=== PATIENT | female | born 1990 | race Caucasian/White ===

== ENCOUNTER → 2023-04-30 13:12 | Outpatient (BNVA) | payer MEDICAID, SELFPAY | PROVIDERS: PCP Internal Medicine; Referring Provider Internal Medicine; Visit Provider Surgery | DX: K80.50 Calculus of bile duct without cholangitis or cholecystitis without obstruction (principal); M67.431 Ganglion, right wrist | CPT/HCPCS: 99202 ==

== ENCOUNTER 2023-05-22 06:14 | Day surgery (SDC) | payer MEDICAID, SELFPAY ==
--- NOTE | 2023-05-21 09:17 | HO.ANESPROP2 ---
Documented by User: Hannah Talavera NP 05/21/23 09:18 HPI - Anesthesia Eval Consult details Narrative: 33yo F for Cholecystectomy Laparoscopic PMFSH Active Problems Active Problems: All Active Problems (Updated 04/30/23 @ 13:39 by Omega Benson MD) Biliary colic (Acute) Ganglion cyst of dorsum of right wrist (Acute) Past Medical History Medical History (Updated 05/19/23 @ 13:57 by Darcy Palomino RN) Allergic rhinitis Anxiety Asthma Fibromyalgia IBS (irritable bowel syndrome) Migraine PCOS (polycystic ovarian syndrome) Family History Family History (Updated 04/30/23 @ 13:37 by LUIS Meza) Father Prostate cancer, Onset Age: 57 Maternal Grandmother Leukemia Other Breast cancer Ovarian cancer Surgical History Surgical History (Updated 05/22/23 @ 06:30 by Crystal Gao) H/O section (~2018) H/O dilation and curettage History of removal of cyst Social History Social History (Updated 04/30/23 @ 13:36 by LUIS Meza) Alcohol intake: never Patient Tobacco Use Status: Never used Tobacco Use of substances other than those prescribed or required for medical reasons: No Are you DNR?: No Advance Directives: No Advance Directives Information Provided: Yes Meds Allergies Allergy/AdvReac Type Severity Reaction Status Date / Time diphenhydramine Allergy Severe MUSCLE Verified 05/22/23 06:32 [From Benadryl] SPASMS meloxicam Allergy Severe Anaphylaxis Verified 05/22/23 06:32 NSAIDS (Non-Steroidal Allergy Severe SWELLING/RA Verified 05/22/23 06:32 Anti-Inflamma SH aspirin Allergy Unknown Unknown Verified 05/22/23 06:32 Home Medications Medication Instructions Recorded Confirmed Last Taken Type ascorbic acid (vitamin C) 500 mg 1,000 mg PO DAILY 04/30/23 05/22/23 Unknown History chewable tablet cetirizine 10 mg tablet (All Day 10 mg PO DAILY PRN Allergic 04/30/23 05/22/23 Unknown History Allergy (cetirizine)) Symptoms duloxetine 20 mg capsule,delayed 20 mg PO DAILY 04/30/23 05/22/23 05/22/23 History release gabapentin 300 mg capsule 300 mg PO DAILY PRN Pain 04/30/23 05/22/23 Unknown History lorazepam 0.5 mg tablet 0.5 mg PO BEDTIME PRN Anxiety 04/30/23 05/22/23 Unknown History multivitamin 1 tab PO DAILY 04/30/23 05/22/23 Unknown History albuterol sulfate 90 mcg/actuation 2 puff inhalation Q4H PRN 05/19/23 05/22/23 Unknown History aerosol inhaler (Ventolin HFA) Shortness Of Breath Or Wheezing Exam Exam Date and Time: May 21, [id number] Assessment and Plan Assessment Anesthesia Assessment: Chart Reviewed Documented by User: Jonathan Blake MD 05/22/23 07:21 [facility] Past Medical History Medical History (Updated 05/19/23 @ 13:57 by Darcy Palomino RN) Allergic rhinitis Anxiety Asthma Fibromyalgia IBS (irritable bowel syndrome) Migraine PCOS (polycystic ovarian syndrome) Family History Family History (Updated 04/30/23 @ 13:37 by LUIS Meza) Father Prostate cancer, Onset Age: 57 Maternal Grandmother Leukemia Other Breast cancer Ovarian cancer Family history of problems with anesthesia: No Surgical History Surgical History (Updated 05/22/23 @ 06:30 by Crystal Gao) H/O section (~2017) H/O dilation and curettage History of removal of cyst History of Problems with Anesthesia: No Social History Social History (Updated 04/30/23 @ 13:36 by LUIS Meza) Alcohol intake: never Patient Tobacco Use Status: Never used Tobacco Use of substances other than those prescribed or required for medical reasons: No Are you DNR?: No Advance Directives: No Advance Directives Information Provided: Yes Meds Allergies Allergy/AdvReac Type Severity Reaction Status Date / Time diphenhydramine Allergy Severe MUSCLE Verified 05/22/23 06:32 [From Benadryl] SPASMS meloxicam Allergy Severe Anaphylaxis Verified 05/22/23 06:32 NSAIDS (Non-Steroidal Allergy Severe SWELLING/RA Verified 05/22/23 06:32 Anti-Inflamma SH aspirin Allergy Unknown Unknown Verified 05/22/23 06:32 Home Medications Medication Instructions Recorded Confirmed Last Taken Type ascorbic acid (vitamin C) 500 mg 1,000 mg PO DAILY 04/30/23 05/22/23 Unknown History chewable tablet cetirizine 10 mg tablet (All Day 10 mg PO DAILY PRN Allergic 04/30/23 05/22/23 Unknown History Allergy (cetirizine)) Symptoms duloxetine 20 mg capsule,delayed 20 mg PO DAILY 04/30/23 05/22/23 05/22/23 History release gabapentin 300 mg capsule 300 mg PO DAILY PRN Pain 04/30/23 05/22/23 Unknown History lorazepam 0.5 mg tablet 0.5 mg PO BEDTIME PRN Anxiety 04/30/23 05/22/23 Unknown History multivitamin 1 tab PO DAILY 04/30/23 05/22/23 Unknown History albuterol sulfate 90 mcg/actuation 2 puff inhalation Q4H PRN 05/19/23 05/22/23 Unknown History aerosol inhaler (Ventolin HFA) Shortness Of Breath Or Wheezing Exam Airway Mallampati Class: II TM Dist: >3cm Neck ROM: Full Heart: rrr Lungs: cta Assessment and Plan Assessment Anesthesia Assessment: Anesthesia Plan Discussed Final Anesthetic Review Family History of Problems with Anesthesia: No History of Problems with Anesthesia: No NPO: Yes ASA Class: II Final Preanesthetic Review: No Changes in Pt Med Stat, Meds/Allgs Chart Reviewed, Consent Obtained/Reviewed and Anes Risks/Benef Reviewed Patient Risk: Low Procedure Risk: Intermediate Anesthetic Plan Anesthetic Plan: GA and Agree w/ Assess. and Plan Disposition: Standard PACU
--- NOTE | 2023-05-21 10:51 | MHC.SHP ---
Pre-Procedural Eval Section A Date of Service: 05/21/23 The patient is an INPATIENT: No Changes since office visit: No Cold of Flu in the past 2 weeks, No New Medical Problems, No Changes in Medication and No Patient answered all questions The History & Physical has been completed within 30 days and I have reviewed it.: Yes Section B Chief Complaint: Calculus of bile duct without cholangitis or omar Allergies: Allergies Allergy/AdvReac Type Severity Reaction Status Date / Time aspirin Allergy Severe Unknown Verified 04/30/23 13:29 diphenhydramine Allergy Severe Unknown Verified 04/30/23 13:29 [From Benadryl] meloxicam Allergy Severe Anaphylaxis Verified 04/30/23 13:29 NSAIDS (Non-Steroidal Allergy Severe Unknown Verified 04/30/23 13:29 Anti-Inflamma Plan I have reviewed the history and physical and performed a pertinent physical examination on my patient. No changes have occurred unless specified. Time Spent With Patient Time: Total time managing care of this patient today ____ minutes.
[2023-05-22] VITALS (12 sets, daily range): BP systolic 109–128; BP diastolic 67–83; PULSE 79–97; RESP 16–20; TEMP 36.3–37.1; O2SAT 96–100; BMI 30.6
[2023-05-22] MEDS: Lactated Ringers 1,000 ML 100 ML IVCONT (06:46)
[2023-05-22 07:01] LABS: UPreg QC Valid YES; Urine Pregnancy NEGATIVE (NEGATIVE)
--- NOTE | 2023-05-22 08:10 | W.PM.OPN ---
Operative Note Operative Note Date of Service: 05/22/23 Narrative: Preoperative diagnosis: [] Recurrent biliary colic Postop diagnosis: [] Same Procedure [] laparoscopic cholecystectomy Surgeon: [] Marcelino Mechanic Insulator: [] ANGELICA Foster Type of Anesthesia: [] General Indication for surgery: [] Gallbladder with multiple small gallstones. Soft omental and gastric adhesions to the gallbladder. Intrahepatic gallbladder. Moderately corpulent abdomen. Findings: [] Patient brought to the operating room, placed on the operative table in supine position, and after an adequate level of general anesthesia was induced, the patient's abdomen was prepped and draped in usual sterile fashion. Using a supraumbilical curvilinear incision, Coyne technique was used to insufflate the abdominal cavity to 15 mm of CO2. Upper midline and right subcostal ports were placed under direct laparoscopic view, and the patient placed in reverse Trendelenburg position, tilted to the left. Gallbladder was grasped using laparoscopic graspers, and retracted superiorly and laterally. Soft omental and gastric adhesions were swept off the hilum. Common bile duct was identified and preserved throughout the procedure. Cystic artery and cystic duct were each identified, circumferentially skeletonized, each traced directly into the gallbladder, and critical view obtained. Each was clipped proximally x2, distally x1, and transected. Gallbladder which was very intrahepatic was then cauterized from the gallbladder fossa using Bovie. A small posterior descending arterial branch was in the gallbladder fossa which was clipped. Gallbladder was placed in an Endo-Catch bag, a retrieved through the umbilical port. The abdominal cavity was copiously irrigated, and secured hemostasis. All ports were removed under direct laparoscopic view. Wounds were closed in the following manner; umbilical wound is fascia reapproximated using interrupted 0 Vicryl sutures. Skin wounds were closed using subcuticular 4-0 Vicryl sutures followed by Steri-Strips and sterile dressings. Wounds were infiltrated 0.5% Marcaine at completion. Sponge, needle, and instrument counts were reported to be correct. Patient tolerated the procedure well and emerged anesthesia stable condition. EBL minimal
[2023-05-22] MEDS: oxyCODONE HCl Immed Release 5 MG TABLET PO (08:52)
[2023-05-22] MEDS: fentaNYL citrate/PF 100 MCG/2 ML VIAL 25 MCG IVPUSH ×2 (08:52→08:57)
== END 2023-05-22 10:20 | disposition home or self-care (01) ==
PROVIDERS: Nurse Practitioner; PCP Nurse Practitioner Adult Health; Visit Provider Surgery
PROC: 0FT44ZZ Resection of Gallbladder, Percutaneous Endoscopic Approach (ICD-10-PCS; CPT 47562; principal; 2023-05-22 07:30)
DX: K80.10 Calculus of gallbladder with chronic cholecystitis without obstruction (principal); Z88.6 Allergy status to analgesic agent; Z88.8 Allergy status to other drugs, medicaments and biological substances
CPT/HCPCS: 47562; 81025; 88304; J0131; J0690; J1100; J1885; J2250; J2370; J2371; J2405; J2795; J3010

== ENCOUNTER → 2023-05-22 06:14 | Outpatient (BNV) | payer MEDICAID, SELFPAY | PROVIDERS: PCP Nurse Practitioner Adult Health; Visit Provider Surgery | DX: K80.51 Calculus of bile duct without cholangitis or cholecystitis with obstruction (principal) | CPT/HCPCS: 47562 ==

== ENCOUNTER 2023-06-02 09:14 | Outpatient (AMB) | payer MEDICAID, SELFPAY ==
[2023-06-02 09:18] VITALS: BP 116/79; PULSE 97
--- NOTE | 2023-06-02 09:18 | MHC.OFFVIS ---
Intake Vital Signs 06/02/23 09:18 Weight 160 lb BP 116/79 Blood Pressure Location Rt brachial Position Sitting Pulse 97 Intake Visit Reasons: S/P lap omar Intake Note: Patient here s/p lap omar. Reports incision sites healing well. Denies pain, bleeding or oozing. No longer taking rx pain meds. 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 All things considered she is doing well. She is Shirin diabetes and all bowel habits. She is slowly but steadily increasing her activity level. She has minimal incisional discomfort. [facility] Medical History Allergic rhinitis Anxiety Asthma Fibromyalgia IBS (irritable bowel syndrome) Migraine PCOS (polycystic ovarian syndrome) Surgical History H/O section (~2018) H/O dilation and curettage History of laparoscopic cholecystectomy (05/22/23) History of removal of cyst Family History Father Prostate cancer, Onset Age: 57 Maternal Grandmother Leukemia Other Breast cancer Ovarian cancer Social History Alcohol intake: never Patient Tobacco Use Status: Never used Tobacco Physical Exam Vital Signs: Last Vital Signs Pulse 97 06/02/23 09:18 BP 116/79 06/02/23 09:18 Eyes Other: Anicteric GI Other: Abdomen soft. All wounds clean dry and intact with good 1st intention healing Assessment & Plan Assessment & Plan (1) Biliary colic: Code(s): K80.50 - Calculus of bile duct without cholangitis or cholecystitis without obstruction Plan Patient has been given specific local instructions, and will follow-up p.r.n. Coding Level of Care Code Global (15594) Diagnoses Biliary colic K80.50
== END 2023-06-02 09:27 | disposition home or self-care (01) ==
PROVIDERS: PCP Internal Medicine; Visit Provider Surgery
DX: K80.50 Calculus of bile duct without cholangitis or cholecystitis without obstruction (principal)
CPT/HCPCS: 99024

== ENCOUNTER → 2023-06-02 09:14 | Outpatient (BNVA) | payer MEDICAID, SELFPAY | PROVIDERS: PCP Internal Medicine; Visit Provider Surgery ==

== ENCOUNTER 2024-09-24 10:38 | Outpatient (REF) | payer OTHER, SELFPAY ==
[2024-09-24 11:00] LABS: MANUAL DIFF FLAG NO
[2024-09-24 11:41] LABS: Basophils Absolute Auto 0.1 X10*3/uL (0.0-0.2); Basophils Percent Auto 0.7 % (0-2); Eosinophils Absolute Auto 0.2 X10*3/uL (0.0-0.4); Eosinophils Percent Auto 3.3 % (0-4); Hematocrit 36.9 % (37.0-47.0); Hemoglobin 12.1 g/dl (12.0-16.0); Imm Gran Abs Auto 0.01 X10*3/uL (0.00-0.03); Imm Gran Pct Auto 0.1 % (0.0-0.4); Lymphocytes Absolute Auto 2.7 X10*3/uL (1.2-4.9); Lymphocytes Percent Auto 39.6 % (20-40); Mean Corpuscular HGB Conc 32.8 g/dl (31.0-35.0); Mean Corpuscular Hemoglobin 25.9 pg (27.0-33.0); Mean Corpuscular Volume 78.8 fL (80.0-98.0); Mean Platelet Volume 9.9 fL (9.4-12.3); Monocytes Absolute Auto 0.4 X10*3/uL (0.1-1.2); Monocytes Percent Auto 6.1 % (2-11); Neutrophils Absolute Auto 3.4 x10*3/uL (2.0-8.3); Neutrophils Percent Auto 50.2 % (45-73); Platelet Count 357 X10*3/uL (160-400); Red Blood Count 4.68 X10*6/uL (4.20-5.50); Red Cell Distribution Width 14.2 % (11.0-16.0); White Blood Count 6.9 X10*3/uL (4.8-10.8)
[2024-09-24 12:18] LABS: Alanine Aminotransferase 28 U/L (0-31); Albumin Level 4.5 g/dL (3.5-5.0); Alkaline Phosphatase 67 U/L (39-117); Anion Gap 10 (12-20); Aspartate Amino Transferase 24 U/L (5-31); Bilirubin Direct 0.1 mg/dL (0.0-0.5); Bilirubin Total 0.3 mg/dL (0.0-1.0); Blood Urea Nitrogen 12 mg/dL (9-16); Calcium 9.4 mg/dL (8.4-10.2); Carbon Dioxide 27 mmol/L (22-29); Chloride 103 mmol/L (96-108); Cholesterol 271 mg/dL (<200); Estimated Glomerular Filt Rate > 60; Glucose Random 92 mg/dL (60-115); HDL Cholesterol 64 mg/dL (>40); LDL Cholesterol Calculated 171 mg/dL (<100); Potassium 3.9 mmol/L (3.3-5.1); Sodium 136 mmol/L (135-145); Total Protein 7.9 g/dL (6.5-8.0); Triglycerides 180 mg/dL (<150)
[2024-09-24 12:30] LABS: HBS Num1 80.88 mIU/mL (0-7.99); HBc Num1 0.12 S/CO (0.00-0.79); HBsAGNum1 0.37 S/CO (0.00-0.99); Hepatitis B Core Antibody Nonreactive (Nonreactive); Hepatitis B Surface Antigen Negative (Negative); ~HepC Num1 0.09 S/CO (0.00-0.79); ~Hepatitis B Surface Antibody REACTIVE (Nonreactive); ~Hepatitis C Antibody Nonreactive (Nonreactive)
[2024-09-24 12:39] LABS: Reflex LDLD? No
[2024-09-27 10:43] LABS: TS Negative Control Passed; TS Panel A 0; TS Panel B 0; TS Positive Control Passed; TSpotTB Negative (Negative)
== END 2024-09-24 10:39 | disposition home or self-care (01) ==
LOC: HO.LAB 10:38
PROVIDERS: PCP Internal Medicine; Visit Provider Physician Assistant
DX: L20.89 Other atopic dermatitis (principal)
CPT/HCPCS: 36415; 80048; 80061; 80076; 85025; 86481; 86704; 86706; 86803; 87340

== ENCOUNTER 2024-11-15 08:50 | Outpatient (REF) | payer OTHER, SELFPAY ==
[2024-11-15 10:20] LABS: Cholesterol 259 mg/dL (<200); HDL Cholesterol 56 mg/dL (>40); LDL Cholesterol Calculated 179 mg/dL (<100); Triglycerides 120 mg/dL (<150)
[2024-11-15 11:05] LABS: Reflex LDLD? No
== END 2024-11-15 08:51 | disposition home or self-care (01) ==
LOC: HO.LAB 08:50
PROVIDERS: PCP Internal Medicine; Visit Provider Physician Assistant
DX: L20.89 Other atopic dermatitis (principal)
CPT/HCPCS: 36415; 80061

== ENCOUNTER 2025-01-28 08:31 | Outpatient (REF) | payer OTHER, SELFPAY ==
[2025-01-28 09:32] LABS: Cholesterol 267 mg/dL (<200); HDL Cholesterol 62 mg/dL (>40); LDL Cholesterol Calculated 180 mg/dL (<100); Triglycerides 127 mg/dL (<150)
[2025-01-28 09:42] LABS: Reflex LDLD? No
== END 2025-01-28 08:32 | disposition home or self-care (01) ==
LOC: HO.LAB 08:31
PROVIDERS: PCP Internal Medicine; Visit Provider Physician Assistant
DX: L20.89 Other atopic dermatitis (principal); Z13.6 Encounter for screening for cardiovascular disorders
CPT/HCPCS: 36415; 80061

== ENCOUNTER 2025-02-12 17:35 | Emergency (ER) | payer OTHER, SELFPAY ==
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
--- NOTE | ~2025-02-12 | XR_ITS ---
CLINICAL HISTORY: dorsal tenderness after fall 3 view right foot Comparison: None Findings: No fractures or dislocations. No significant loss of joint space, osteophytes, or erosions. No ankle effusion. No radiopaque foreign body. There is a miniscule plantar tendon enthesophyte. IMPRESSION: No acute fracture or dislocation. This document has been electronically signed by: Belkys Garrison DO on 02/12/2025 19:07:14
[2025-02-12 17:50] VITALS: BP 117/86; PULSE 92; RESP 16; TEMP 36.4; O2SAT 99; BMI 28.0
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
[2025-02-12 21:02] VITALS: BP 135/85; PULSE 89; RESP 20; TEMP 36.9; O2SAT 99
[2025-02-12 21:07] VITALS: BP 135/85; PULSE 89; RESP 20; TEMP 36.9; O2SAT 99
== END 2025-02-12 21:08 | disposition home or self-care (01) ==
PROVIDERS: Emergency Provider Emergency Medicine Emergency Medical Services; PCP Internal Medicine
DX: S82.891A Other fracture of right lower leg, initial encounter for closed fracture (principal); M25.571 Pain in right ankle and joints of right foot; R42 Dizziness and giddiness; W19.XXXA Unspecified fall, initial encounter; Y93.9 Activity, unspecified; Y92.9 Unspecified place or not applicable; Y99.8 Other external cause status; Z79.899 Other long term (current) drug therapy
CPT/HCPCS: 73610; 73620; 99283

== ENCOUNTER → 2025-02-12 17:54 | Outpatient (BNV) | payer OTHER, SELFPAY | PROVIDERS: PCP Internal Medicine; Visit Provider Radiology Diagnostic Radiology | DX: S82.61XA Displaced fracture of lateral malleolus of right fibula, initial encounter for closed fracture (principal); M54.89 Other dorsalgia; W19.XXXA Unspecified fall, initial encounter | CPT/HCPCS: 73610; 73620 ==

== ENCOUNTER 2025-03-03 08:49 | Outpatient (AMB) | payer OTHER, SELFPAY ==
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
== END 2025-03-03 09:25 | disposition home or self-care (01) ==
LOC: HO.HOS 08:49
PROVIDERS: PCP Internal Medicine; Visit Provider Physician Assistant
DX: S93.401A Sprain of unspecified ligament of right ankle, initial encounter (principal); S82.891A Other fracture of right lower leg, initial encounter for closed fracture; W01.0XXA Fall on same level from slipping, tripping and stumbling without subsequent striking against object, initial encounter
CPT/HCPCS: 99204

== ENCOUNTER → 2025-03-03 08:49 | Outpatient (BNVA) | payer OTHER, SELFPAY | PROVIDERS: PCP Internal Medicine; Visit Provider Physician Assistant ==

== ENCOUNTER 2025-03-31 09:17 | Outpatient (REF) | payer OTHER, SELFPAY ==
--- NOTE | ~2025-03-31 | XR_ITS ---
CLINICAL HISTORY: M25.579 - Pain in unspecified ankle and joints of unspecified foot 3 view right ankle Comparison: CR - XR FOOT RT 2V - 02/12/25 18:08 EDT CR/NV - XR ANKLE RT MIN 3V - 02/12/25 18:06 EDT Findings: Bony alignment is anatomic. No acute fractures. Tiny radiodensities are seen along the medial aspect of the distal lateral malleolus. These are improved compared to prior study. Mild lateral soft tissue swelling. No definitive acute fracture is seen. Ankle mortise is intact. IMPRESSION: Improved tiny radiodensities adjacent to the medial aspect of the lateral malleolus. No acute fracture identified. This document has been electronically signed by: Da Abraham MD on 04/09/2025 09:05:48
== END 2025-03-31 09:18 | disposition home or self-care (01) ==
LOC: HO.HOSX 09:17
PROVIDERS: Visit Provider Physician Assistant
DX: M25.571 Pain in right ankle and joints of right foot (principal)
CPT/HCPCS: 73610

== ENCOUNTER 2025-03-31 09:21 | Outpatient (AMB) | payer OTHER, SELFPAY ==
--- NOTE | 2025-03-31 09:34 | MHC.OFFVIS ---
Intake Visit Reasons: OV- right ankle injury-DOI 02/12/25 w/xray Intake Note: Tran is a 35 year old female who presents today with her for an evaluation of right ankle fx, DOI 02/12/25. At her last visit she was given a tall walking boot. Patient reports she is doing well and she is working with physical therapy. Allergies diphenhydramine [From Benadryl] Allergy (Severe, Verified 03/31/25 09:47) MUSCLE SPASMS meloxicam Allergy (Severe, Verified 03/31/25 09:47) Anaphylaxis NSAIDS (Non-Steroidal Anti-Inflamma Allergy (Severe, Verified 03/31/25 09:47) SWELLING/RASH aspirin Allergy (Unknown, Verified 03/31/25 09:47) Unknown HPI HPI OV- right ankle injury-DOI 02/12/25 w/xray: Details: Ms. 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 At her last appointment she was transitioned to a tall walking boot. She has been using this as instructed since her last appointment. She reports that she has developed some stiffness in the right ankle. She is working with physical therapy and has attended 2 sessions to date. She reports that the pain has resolved overall. No additional complaints. [facility] Medical History (Updated 03/03/25 @ 09:08 by Trena Frias PA-C) Avulsion fracture of ankle Right ankle sprain Anxiety Fibromyalgia IBS (irritable bowel syndrome) Allergic rhinitis Asthma Migraine PCOS (polycystic ovarian syndrome) Surgical History History of laparoscopic cholecystectomy (05/22/23) H/O dilation and curettage H/O section (~2018) History of removal of cyst Family History Father Prostate cancer, Onset Age: 57 Maternal Grandmother Leukemia Other Breast cancer Ovarian cancer Social History Alcohol intake: never Patient Tobacco Use Status: Never used Tobacco Current occupational status: employed 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 No ecchymosis, erythema, or edema. Patient is able to demonstrate dorsiflexion, plantar flexion, pronation and supination. Sensation intact. Pedal Pulse intact. Assessment & Plan Assessment & Plan (1) Avulsion fracture of ankle: Code(s): S82.899A - Other fracture of unspecified lower leg, initial encounter for closed fracture Category: Medical Plan Ms. 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 At her last appointment she was transitioned to a tall walking boot. She has been using this as instructed since her last appointment. She reports that she has developed some stiffness in the right ankle. She is working with physical therapy and has attended 2 sessions to date. She reports that the pain has resolved overall. No additional complaints. While the office today, I instructed the patient that she may discontinue the tall walking boot at this time. I provided the patient with a lace-up ankle brace that she should wear during activities only. I did caution her on overuse of the ankle brace we will continue to lead to increased stiffness and difficulty with ambulation. She will continue to attend physical therapy until all sessions have been completed. She will follow up with Orthopedics p.r.n., sooner if needed. X-rays of the right ankle which were obtained while in the office today and were reviewed by me, Trena Frias PA-C, revealed routine healing right ankle lateral malleolar avulsion fracture. Orders: Orders XR ankle RT min 3V Today M25.579 - Pain in unspecified ankle and joints of unspecified foot Coding Level of Care Code Est Pt Level 3 (77268) Diagnoses Avulsion fracture of ankle S82.899A
== END 2025-03-31 10:01 | disposition home or self-care (01) ==
LOC: HO.HOS 09:22
PROVIDERS: PCP Internal Medicine; Visit Provider Physician Assistant
DX: S82.891A Other fracture of right lower leg, initial encounter for closed fracture (principal)
CPT/HCPCS: 99213

== ENCOUNTER → 2025-03-31 09:25 | Outpatient (BNV) | payer OTHER, SELFPAY | PROVIDERS: Visit Provider Radiology Diagnostic Radiology | DX: M70.971 Unspecified soft tissue disorder related to use, overuse and pressure, right ankle and foot (principal) | CPT/HCPCS: 73610 ==

== ENCOUNTER 2025-04-19 15:04 | Outpatient (RCR) | payer OTHER, SELFPAY ==
--- NOTE | 2025-03-17 16:59 | MHC.PT.EP ---
[facility] [place] Office [place] Office [place] [facility] [address] Nilda Gonzalez [address] [phone] F: [phone] F: [phone] F: [phone] F: [phone] Physical Therapy Plan of Care Date of Evaluation: 03/17/25 Date of Surgery: Diagnosis: Closed avulsion fracture of R distal fibula. Assessment: Pt is a 35 y/o female with PMHx of referred to PT for eval and treat of closed R ankle avulsion fracture/ sprain which occurred on 02/12/25 after fall backwards who presents in walking boot and her condition is resulting decreased tolerance or ability for negotiating stairs and curbs, walking intermediate and long distances, performing heavy HH chores and squatting activities, performing fitness and recreation activities secondary to decreased R ankle ROM and strength, gait abnormality, WBAT status, traumatic injury healing timeline and pain. Pt is deemed an appropriate candidate to receive skilled PT services to address their physical impairments in order to improve their functional ability. Frequency and Duration: The patient will be seen 2 x/ wk x 6 wks Short Term Goals: initiate home program. DC boot; achieve symmetrical gait. Deputy Director Of Public Works Goals: I with home program. Pt will be able to ascend and descend 1 fl of stairs with reciprocal fashion. Pt will improve LEFI outcome measure by at least 9 points. Pt will Be able to walk 2 blocks without difficulty. Treatment Plan: Modalities to reduce pain, spasms and effusion. Manual therapy to restore motion and function. Therapeutic exercise to improve strength and flexibility. Neuromuscular re-education for posture and balance. Therapeutic activities to return to functional activities of daily living. Electronically signed by: Brando Tompkins PT. Please sign and return to therapist. Thank you for your referral.
== END 2025-10-19 08:36 | disposition home or self-care (01) ==
LOC: HO.PT 15:04
PROVIDERS: PCP Internal Medicine; Visit Provider Physician Assistant
DX: S93.401D Sprain of unspecified ligament of right ankle, subsequent encounter (principal); S82.891D Other fracture of right lower leg, subsequent encounter for closed fracture with routine healing
CPT/HCPCS: 97110; 97112; 97140; 97161; 97530

== ENCOUNTER 2025-06-13 14:58 | Outpatient (AMB) | payer OTHER, SELFPAY ==
--- NOTE | 2025-06-13 15:20 | A.OFFVIS_ITS ---
Vital Signs 06/13/25 15:20 Height 5 ft 2 in Intake Visit Reasons: 4 weeks Allergies diphenhydramine (From Benadryl) Allergy (Severe, Verified 06/13/25 15:25) MUSCLE SPASMS meloxicam Allergy (Severe, Verified 06/13/25 15:25) Anaphylaxis NSAIDS (Non-Steroidal Anti-Inflamma Allergy (Severe, Verified 06/13/25 15:25) SWELLING/RASH aspirin Allergy (Unknown, Verified 06/13/25 15:25) Unknown Medication List - Last Reconciled 06/10/25 by Desire Cleveland CNP albuterol sulfate 90 mcg/actuation (Ventolin HFA) 2 puffs inhalation Q4H PRN ascorbic acid (vitamin C) 1,000 mg PO DAILY cetirizine (All Day Allergy (cetirizine)) 10 mg PO DAILY PRN gabapentin 300 mg PO DAILY PRN hydroxyzine HCl mg PO lorazepam 0.5 mg PO BEDTIME PRN multivitamin 1 tab PO DAILY ondansetron 4 mg PO Q8H rizatriptan take 1 tab at onset of headache; if no relief may repeat 1 tab after at least 2 hrs; max = 3 tabs/24 hr PO topiramate 25 mg PO BEDTIME HPI Comments Details: 35 yo woman with fibromyalgia syndrome and migraine. She was doing so-so. She was taking topiramate 25mg at bedtime, no medication side effects. She had 9 headaches in 05/2025. Headaches were associated with photophobia, sonophobia, and sometimes nausea. She had some pain into neck. Headaches were worse around period. Other triggers included heat and certain foods, such as chocolate and processed foods. Rizatriptan as needed helped. Sleep was okay. Fibromyalgia pains were okay, a bit more with headaches. She was taking gabapentin at bedtime as needed, exercising and stretching. [facility] Medical History (Updated 06/13/25 @ 15:22 by Desire Cleveland CNP) Migraine without aura PTSD (post-traumatic stress disorder) Fibromyalgia Avulsion fracture of ankle Right ankle sprain Anxiety Fibromyalgia IBS (irritable bowel syndrome) Allergic rhinitis Asthma Migraine PCOS (polycystic ovarian syndrome) Surgical History History of laparoscopic cholecystectomy (05/22/23) H/O dilation and curettage H/O section (~2018) History of removal of cyst Family History Father Prostate cancer, Onset Age: 57 Maternal Grandmother Leukemia Other Breast cancer Ovarian cancer Social History Alcohol intake: never Patient Tobacco Use Status: Never used Tobacco Current occupational status: employed 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 Review of Systems Const Denies chills, Denies daytime sleepiness, Denies difficulty sleeping, Denies fatigue, Denies fever(s), Denies frequent falls, Reports headache(s), Denies increased appetite, Denies poor appetite, Denies snoring, Denies weakness, Denies weight gain and Denies weight loss Eyes Denies loss of vision ENT Denies vertigo, Denies dizziness and Reports headache(s) Card Denies chest pain at rest, Denies chest pain with activity, Denies syncope, Denies leg edema and Denies palpitations Resp Denies snoring GI Denies constipation, Denies heartburn, Denies diarrhea and Denies nausea Denies urinary frequency, Denies urinary incontinence and Denies urinary urgency Musc Denies abnormal gait, Denies numbness and Denies tingling Skin/Breast Denies dry skin and Denies rash Neuro Denies abnormal gait, Denies vertigo, Denies dizziness, Denies syncope, Denies frequent falls, Reports headache(s), Denies lack of coordination, Denies loss of vision, Denies memory loss, Denies numbness, Denies restless legs, Denies seizure-like activity, Denies tingling, Denies paresthesias, Denies tremor(s) and Denies weakness Psych Denies anxiety, Denies depression, Denies auditory hallucinations, Denies memory loss, Denies visual hallucinations and Denies suicidal ideation Endo Denies fatigue and Denies palpitations Physical Exam Const Other: General Appearance:? normal, in no acute distress. Skin:? no rashes, no significant birthmarks. Heart:? S1, S2 normal, no murmurs. Lungs:? clear anteriorly and posteriorly. Extremities:? no edema. Psych:? alert, oriented, cognitive function intact, cooperative with exam. Neuro Other: Mental Status:?Normal attention, orientation, memory and affect.? Cranial Nerves:?Pupils are equal, round and reactive to light. External occular muscles are intact. Visual bansal are full. Face is symmetrical. Facial sensations are normal. Tongue is midline. Palate elevates symmetrically. Shoulder shrugging is normal. Hearing to bedside conversation is normal. Sensory Exam:?....? Coordination:?No ataxia,?no titubation.? Gait Exam: Within normal limits. Extrapyramidal System:?No tremor, rigidity with normal facial expressions.? Pronator Drift:?Not present.? Involuntary Movements:?No tremors seen.? Speech:?Normal.? Results Reviewed Results Reviewed: Labs at [place] 05/2025: CBC, CMP: ok Cholesterol: 235, LDL 137 A1c 5.8 Vit D 16.7 Assessment & Plan Assessment & Plan (1) Migraine without aura: Code(s): G43.009 - Migraine without aura, not intractable, without status migrainosus Category: Medical Qualifiers: Status migrainosus presence: without status migrainosus Intractability: not intractable Qualified Code(s): G43.009 - Migraine without aura, not intractable, without status migrainosus Plan: Increase topiramate 50mg 1 tablet at bedtime Continue rizatriptan 10mg 1 tablet as needed for migraine Continue ondansetron 4mg 1 tablet as needed for nausea/vomiting (2) Fibromyalgia: Code(s): M79.7 - Fibromyalgia Category: Medical Plan: Continue gabapentin 300mg 1 capsule as needed for pain. Plan Meds tried: amitriptyline (side effects), duloxetine (side effects), sumatriptan (side effects), butalbital, topiramate Medications: New topiramate 50 mg PO BEDTIME 90 tabs 1RF 90 days rizatriptan take 1 tab at onset of headache; if no relief may repeat 1 tab after at least 4 hrs; max = 2 tabs/24 hr PO 10 tabs 5RF 30 days Discontinued rizatriptan Discontinued Reason: Order take 1 tab at onset of headache; if no relief may repeat 1 tab after at least 2 hrs; max = 3 tabs/24 hr PO Coding Level of Care Code Est Pt Level 4 (95497) Diagnoses Migraine without aura and without status migrainosus, not intractable G43.009 Status migrainosus presence: without status migrainosus Intractability: not intractable Fibromyalgia M79.7
--- OUTSIDE RECORDS SUMMARY | 2025-06-13 15:21 | XMS_ITS | Clinical Summary ---
Author Organization Formerly [facility] Address [address] [place] [id number] Phone Care Team Providers Care Biogeographer Name Role Phone BillurielciprianoJaswinder worthington Primary Care Provider [phone] Allergies Active Allergy Reactions Criticality Noted Date Comments Aspirin 12/04/2020 Diphenhydramine Hcl 12/04/2020 Nsaids (Non-Steroidal Anti-I nflammatory Drug) 12/04/2020 Diphenhydramine-Acetaminophen 2020 Medications EPINEPHrine 0.3 mg/0.3 mL auto-injector Inject 0.3 mg into the muscle as needed for anaphylaxis. Active ascorbic acid (VITAMIN C ORAL) Take 500 mg by mouth. Active gabapentin (NEURONTIN) 300 MG capsule Take 300 mg by mouth daily as needed. 2 Active DULoxetine (CYMBALTA) 30 MG capsule 2 Active SUMAtriptan (IMITREX) 50 MG tablet TAKE 1 TABLET ONCE DAILY IF NEEDED FOR MIGRAINE. MAY TAKE 1 ADDITIONAL TABLET 2 HOURS LATER IF NEED 3 Active Hospital, Clinic, or Other Facility Administered Medication Ordered Dose Route Frequency Start Date End Date Status copper (PARAGARD) intrauterine device 1 eachIndications:Encounte r for insertion of intrauterine contraceptive device 1 each Utrn Every 10 years 07/17/2021 Active Active Problems Problem Noted Date Diagnosed Date Menorrhagia with regular cycle 04/22/2022 Overview (04/22/2022): Long history of heavy menses per pt First full menses after last delivery 03/2022 - heavy bleeding, 15 days Assessment & Plan (04/22/2022 5:04 PM EDT): We discussed recent lengthy heavy menses (March 2022) and current heavy menses. Will check [facility] and u/s. Tran does have hx of prior menorrhagia and though she has had Paragard since last year, she just reduced and is therefore just starting to have more regular menses, which may also mean that she is now seeing possible additive impact on her menses of Paragard. Dysmenorrhea 04/22/2022 Overview (04/22/2022): Long history dysmenorrhea per pt Not significantly increased with Paragard Fibromyalgia 01/04/2021 Overview (01/04/2021): Has not been taking meds since onset Resolved Problems Problem Noted Date Diagnosed Date Resolved Date Vaginal after 05/20/2021 06/27/2021 hemorrhage, third stage 05/20/2021 06/27/2021 Overview (05/20/2021): QBL 1213- received pitocin, miso, and methergine. Significant bleeding from vaginal laceration. Minimal drop in h&h from admission (30.7/9.7 on 05/18, 28.9/9.3 six hours post delivery. High-risk in third trimester 05/18/2021 06/27/2021 Supervision of high risk pre gnancy in third trimester 01/04/2021 06/27/2021 Overview (04/27/2021): CNM OB-CMI score = 1 [02/15/21] Rh O pos GC/Chlam neg PAP 07/14/20 NILM, HPV neg Tdap 03/01/21 Flu * Hgb 10.5, taking iron. Repeated at 37wks, still 10.5. GTT 141. 3hr 74, 129, 125, 103 - WNL 28 wk Repeat RPR NR GBS NEG PPBC considering Paragard. If not, will use condoms. Also discussed Phexxi. screening - NT done but was outside the cutoff for [place] Transfer at 22 wks Assessment & Plan (05/16/2021 4:53 PM EDT): Balloon and low-dose pitocin IOL scheduled for tomorrow night. 3rd tri comforts measures reviewed. Disc steps to take toward optimal health in . Reviewed s/s labor, danger signs, when/how to call. Assessment & Plan (05/10/2021 10:26 AM EDT): Tran is a 31 yo at 40w1d here for routine visit. No lof, vb. Reports feeling extra tired over the last three days. Reports some cramping and tightening that feels slightly like contractions. Sometimes occurs 2-3x an hour, but then goes away with lying down. Nothing consistent. She has some concerns about movement. States that baby is moving, but not as active as her previous . She feels stretches, but less obvious movements. Assured pt that this is normal for end of , and explained kick counts. Pt reports she definitely feels 10 movements in two hours. Encouraged pt to call if she notices anything different or feels that movement seems decreased even when tracking kick counts. Discussed IOL versus scheduled if pt were to go past 41 weeks. Pt strongly desires IOL if need be over a scheduled . Pt has done a lot of her own research. Understands that evidence is mixed about induction timing. Is sure that she wants to induce before 42 weeks if labor has not started naturally because she is concerned about other risks associated with waiting beyond 42 weeks. Aware of BPP at 41 weeks and plans to schedule. Pt to return in 1 week for routine visit. BHAVESH Weber. Assessment & Plan (05/04/2021 5:21 PM EDT): Tran is a 31 yo at 39w2d here for routine visit. No lof, vb. Good fm. Feels frequent BH ctx, usually for a 1-2 hour period during the day. Sometimes stops her in her tracks and she has to breathe through them. Feeling lots of pelvic pressure and often feels like she suddenly needs to have a bowel movement. Reviewed labor signs and when to call. Reviewed standards of practice for if she goes past her due date, including when an induction would be considered. Pt is very hopeful about her TOLAC and is doing daily Spinning Babies exercises to help baby stay in vertex position. Pt to return to office in 1 week for repeat US. BHAVESH Weber Assessment & Plan (04/29/2021 1:49 PM EDT): Tran is doing well today. She is feeling regular movement. We reviewed labor signs/when to call. She was unable to do CBC last week because she had her daughter with her, will go to the lab after this visit. GBS negative. NASIMA in one week. Assessment & Plan (04/20/2021 2:21 PM EDT): Tran is a 31yo at 37 2/7 weeks, here with her daughter. Feeling well. Lots of cramping at night. Active baby. GBS neg, reviewed. PPBC - considering vasectomy but not sure, also considering Paragard. Had hormonal IUD in past, had acne, mood changes, joint pain different from her fibromyalgia so does not want hormones again. Tried minipill but missed it, which is how she ended up with current . If not Paragard, will use condoms. Has been craving ice chips recently. CBC ordered at patient request to check status of anemia, has been taking iron supplement. NASIMA in one week. Assessment & Plan (04/13/2021 1:46 PM EDT): Tran is doing well today. She is feeling regular movement, denies PTL signs. Weekly OB visits are scheduled. Reviewed when to call. Assessment & Plan (03/30/2021 2:19 PM EDT): Tran is doing well today- she is feeling abundant movement. Having some irregular cramping, nothing consistent or strong. Reviewed PTL signs. Tran has been doing spinning babies exercises to encourage optimal positioning for labor/. Will return in 2 weeks for routine OB visit. Assessment & Plan (03/15/2021 9:23 AM EDT): Tran is doing well today- no concerns. She feels daily movement. Denies PTL signs. Will return in two weeks. Assessment & Plan (03/01/2021 9:12 AM EDT): Tran is a 31yo at 30 1/7 weeks. Feeling well. Active baby. Was seen at [facility] ED in the past week for shortness of breath, resolved after a couple of hours. Per pt, no clear etiology, thought to be related to positioning of baby or diaphragmatic compression. Discussed COVID vaccine recommendations, considering whether she will get in vs . Her and all family members have been vaccinated and she works at home. Tdap given today. Reviewed updated hospital and outpatient visitor policy. NASIMA in two weeks. Assessment & Plan (02/15/2021 1:16 PM EDT): Tran is a 30 you at 28 1/7 weeks. Feeling very well. Active baby. This is her second visit since transferring care. Prior care was at [facility], wanted to see midwives and was not allowed to, didn't feel like they respected her desire for TOLAC. Discussed TOLAC today, including risk of uterine rupture, and risks of repeat . Discussed that if prior was LTCS and was for breech, she is a good candidate for TOLAC. Will review transfer and surgical records to confirm. Gave consent form to take home and read. Having 28 week labs drawn today. Reviewed 3rd trimester warning signs, when to call, how to reach harvest contractor CNM. NASIMA in two weeks. Assessment & Plan (01/23/2021 8:30 AM EDT): Tran is a 30 y.o. at 24w6d states she feels well today. Denies any concerns at this time. Denies any LOF/Vaginal bleeding/Ucs. Reports +FM. Her only concern today is lower back pain and groin pain. -Pt advised on physiologic changes in the body during . Advised on stretches and comfort measures for pain. Also suggested acupuncture or seeing a chiropractor. -Discussed FM at this [place] and [facility] -Review signs and symptoms of Pre-term Labor and when/how to contact midwives -2nd trimester labs discussed for 28 wks. -Advised on Tdap administration in and implications. Administered between 28-36wk. -NV in 4 weeks History of delivery affecting 12/09/2020 06/27/2021 Overview (03/15/2021): S/t breech presentation in early labor Was tachycardic with bilateral LE swelling, and there was concern for DVT. Work- up was normal. She thinks it was pain related. 12/09/20 Counseling done 01/04/21 Will need consent at later visit 02/15: records not received for prior done at [facility] (had care with BRUNA, delivery at [facility]) - records in media Desires TOLAC, consent signed Assessment & Plan (05/16/2021 4:52 PM EDT): Counseled on R/B of TOLAC and IOL, pt wishes to proceed. Assessment & Plan (04/29/2021 1:49 PM EDT): Baby continues to be vertex by naman. Will check closely at each visit and schedule ultrasound if there is any doubt. Assessment & Plan (04/20/2021 2:20 PM EDT): With last , baby turned breech at the end. Vertex today. May be interested in US to confirm position at 39-40 weeks. Assessment & Plan (03/01/2021 9:10 AM EDT): Records from prior not yet received, completed record release today for both [facility] and [facility]. Deisres TOLAC, consent signed 03/01/21. Assessment & Plan (01/23/2021 8:21 AM EDT): -Desires to TOLAC. Has been well counseled. All questions answered. Assessment & Plan (12/09/2020 9:10 PM EST): A: 30 y/o here at 18 weeks for Meet and Greet to discuss hospital TOLAC policies Considering transfer of care Strongly desires TOLAC, prior C/S for breech, states low transverse incision P: We discussed our approach to TOLAC and that given her history We discussed the risk of uterine rupture with a prior C/S as approximately 0.5- 1%. We discussed the risks to both mother and baby should this occur. Maternal risks include hemorrhage, transfusion, infection, and injury to internal organs. or risks include decreased blood supply to fetus, which could result in hypoxia, neurologic injury, or . We discussed the management recommendations for TOLAC including continuous monitoring, IV insertion in labor, and blood work on admission. We discussed that in patients whose first C/S was for non-repetitive indications, such as breech or abnormal heart rate pattern before labor, there is about a 70-75% chance of having a successful . We discussed that in patients whose C/S was for a possibly recurrent indication like failure to progress or failure to descend there is a lower chance of success, approximately 50%. Success rates are best with spontaneous labor. We discussed limited tools for induction of labor in a patient attempting a TOLAC. We discussed that a successful would be safest for both mom and baby, that a scheduled C/S would be second safest, and that a failed trial of labor followed by a C/S holds the most risk. We discussed the difficulty in predicting who will have a successful . Options for awaiting labor and trial of vs scheduled C/S were discussed with the patient. All questions were answered. We discussed that a TOLAC attempted at home could have additional risks to her and to the baby because of the additional time required to transfer her to the hospital and that time is vital if there is uterine rupture. If she does plan a home , Co-care should be done with [facility] because she lives in [place]- She does plan that. I welcomed Tran to contact us if she decides to transfer her care. If she does, she will need to complete the TOLAC consent at that time. Immunizations Immunization Administration Dates Next Due Influenza, Unspecified Formulation 08/04/2020 Tdap 03/01/2021 Family History Relation Status Comments Daughter Alive Father Alive Mother Alive Social History Tobacco Use Types Packs/Day Years Used Date Smoking Tobacco: Never Smokeless Tobacco: Never Alcohol Use Standard Drinks/Week Comments Not Currently 0 (1 standard drink = 0.6 oz pur e alcohol) none with Education Answer Date Recorded Are you interested in more education? Not on [place] e 02/28/2023 Are you concerned about learning? Not on file 02/28/2023 No 02/28/2023 No 02/28/2023 Digital Access Answer Date Recorded No 03/29/2023 No 03/29/2023 Reliable internet access at home? Not on file 03/29/2023 Device with a working camera? 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 Not on file Not on file Not on file Last Filed Vital Signs Vital Sign Reading Time Taken Comments Blood Pressure 98/64 07/29/2023 2:28 PM EDT Pulse 84 05/21/2021 10:00 AM EDT Temperature 36.4 C (97.5 F) 05/21/2021 10:00 AM EDT Respiratory Rate 20 05/21/2021 10:00 AM EDT Oxygen Saturation 96% 05/21/2021 10:00 AM EDT Inhaled Oxygen Concentration - - Weight 72.6 kg (160 lb) 07/29/2023 2:28 PM EDT Height 157.5 cm (5' 2 ) 07/29/2023 2:28 PM EDT Body Mass Index 29.26 07/29/2023 2:28 PM EDT Plan of Treatment Health Maintenance Due Date Last Done Comments DEPRESSION SCREENING 2002 HEPATITIS C SCREENING 02/20/2008 PAP SMEAR 07/14/2023 07/14/2020 COVID-19 VACCINE (2023-12 5 season) 2024 07/14/2021, 06/16/2021 SCREENING FOR DIABETES 2025 02/26/2021 Adult Td,Tdap Booster 03/01/2031 03/01/2021 , 07/16/2015 HIV ONE-TIME SCREENING (18-6 5 YEARS) Completed 10/30/2020 SMOKING STATUS SCREENING (On ce After 26 Yrs) Completed 04/22/2022 HEPATITIS A VACCINES Aged Out No long er eligible based on patient's age to complete this topic HIB VACCINES Aged Out No longer eligi ble based on patient's age to complete this topic MENINGOCOCCAL VACCINES (ACWY) Aged Out No longer eligible based on patient's age to complete this topic MENINGOCOCCAL VACCINES (B) Aged Out N o longer eligible based on patient's age to complete this topic PNEUMOCOCCAL VACCINES (0-49 years) Aged Out No longer eligible b ased on patient's age to complete this topic Medical Devices Implanted Type Area Auto Travel Counselor Device Identifier Shelf Expiration Date Model / Serial / Lot Iud Implanted: (Quantity not on file) Intrauterine Device Procedures Procedure Name Priority Date/Time Associated Diagnosis Comments PAP TEST Routine 07/14/2020 from Last 3 Months or Most Recently Relevant to Health Maintenance Results * Pap Smear (07/14/2020) PAP - EXTERNAL NIL/HPV neg Historical Provider MD CYTOLOGY ORDERABLES Final Result from Last 3 Months or Most Recently Relevant to Health Maintenance [place] [address] Member Subscriber Plan / Payer (Ef fective 2020-Present) Name:Tran Coley Relation to Subscriber:Self Name:Tran Coley Payer ID:[id number] Group ID:Not on file Type:Medicaid Address: [place] [id number] [place] [address] [place] [address] [facility] Advance Directives For more information, please contact: [phone] (9AM - 5PM [facility], Friday-Friday) Documents on File Type Date Recorded Patient Literature Professor Expl anation Healthcare Proxy 05/22/2021 2:28 PM Care Teams Biogeographer Relationship Specialty Start Date End Date Jaswinder Rondon DO [address] [place] [address] [address] [place] [address] PCP - General Internal Medicine 02/15/21 Additional Source Comments The information contained in this document represents components of the legal health record. It is not the complete legal health record.[facility]ly [facility]
== END 2025-06-13 15:39 | disposition home or self-care (01) ==
LOC: HO.HSM 14:58
PROVIDERS: PCP Internal Medicine; Visit Provider Registered Nurse
DX: G43.009 Migraine without aura, not intractable, without status migrainosus (principal); M79.7 Fibromyalgia
CPT/HCPCS: 99214

== ENCOUNTER 2025-08-02 15:00 | Outpatient (AMB) | payer OTHER, SELFPAY ==
--- NOTE | 2025-08-02 15:20 | MHC.OFFVIS ---
Intake Visit Reasons: 6weeks/ Migraine Allergies diphenhydramine (From Benadryl) Allergy (Severe, Verified 08/02/25 15:21) MUSCLE SPASMS meloxicam Allergy (Severe, Verified 08/02/25 15:21) Anaphylaxis NSAIDS (Non-Steroidal Anti-Inflamma Allergy (Severe, Verified 08/02/25 15:21) SWELLING/RASH aspirin Allergy (Unknown, Verified 08/02/25 15:21) Unknown Medication List - Last Reconciled 08/02/25 by Desire Cleveland CNP albuterol sulfate 90 mcg/actuation (Ventolin HFA) 2 puffs inhalation Q4H PRN ascorbic acid (vitamin C) 1,000 mg PO DAILY cetirizine (All Day Allergy (cetirizine)) 10 mg PO DAILY PRN gabapentin 100 mg PO TID hydroxyzine HCl mg PO lorazepam 0.5 mg PO BEDTIME PRN multivitamin 1 tab PO DAILY ondansetron 4 mg PO Q8H rizatriptan take 1 tab at onset of headache; if no relief may repeat 1 tab after at least 4 hrs; max = 2 tabs/24 hr PO 30 days venlafaxine 75 mg PO DAILY HPI Comments Details: 35 yo woman with fibromyalgia syndrome and migraine. She tried increased dose of topiramate, but stopped medication due to dizziness. She was working with psychiatrist who started venlafaxine for mood which seemed to be helping, and gabapentin 100-300mg/day. She was taking gabapentin 200mg at bedtime which helped with sleep. She was still getting few headaches, more around period. She had 4 migraines in the last month with photophobia and sonophobia, and she had to go lay down. Rizatriptan was not helping as much anymore and she was having to repeat the dose. [facility] Medical History (Updated 06/13/25 @ 15:22 by Desire Cleveland CNP) Migraine without aura PTSD (post-traumatic stress disorder) Fibromyalgia Avulsion fracture of ankle Right ankle sprain Anxiety Fibromyalgia IBS (irritable bowel syndrome) Allergic rhinitis Asthma Migraine PCOS (polycystic ovarian syndrome) Surgical History History of laparoscopic cholecystectomy (05/22/23) H/O dilation and curettage H/O section (~2018) History of removal of cyst Family History Father Prostate cancer, Onset Age: 57 Maternal Grandmother Leukemia Other Breast cancer Ovarian cancer Social History Alcohol intake: never Patient Tobacco Use Status: Never used Tobacco Current occupational status: employed 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 Review of Systems Const Denies chills, Denies daytime sleepiness, Denies difficulty sleeping, Denies fatigue, Denies fever(s), Denies frequent falls, Reports headache(s), Denies increased appetite, Denies poor appetite, Denies snoring, Denies weakness, Denies weight gain and Denies weight loss Eyes Denies loss of vision ENT Denies vertigo, Denies dizziness and Reports headache(s) Card Denies chest pain at rest, Denies chest pain with activity, Denies syncope, Denies leg edema and Denies palpitations Resp Denies snoring GI Denies constipation, Denies heartburn, Denies diarrhea and Denies nausea Denies urinary frequency, Denies urinary incontinence and Denies urinary urgency Musc Denies abnormal gait, Denies numbness and Denies tingling Skin/Breast Denies dry skin and Denies rash Neuro Denies abnormal gait, Denies vertigo, Denies dizziness, Denies syncope, Denies frequent falls, Reports headache(s), Denies lack of coordination, Denies loss of vision, Denies memory loss, Denies numbness, Denies restless legs, Denies seizure-like activity, Denies tingling, Denies paresthesias, Denies tremor(s) and Denies weakness Psych Denies anxiety, Denies depression, Denies auditory hallucinations, Denies memory loss, Denies visual hallucinations and Denies suicidal ideation Endo Denies fatigue and Denies palpitations Physical Exam Const Other: General Appearance:? normal, in no acute distress. Skin:? no rashes, no significant birthmarks. Heart:? S1, S2 normal, no murmurs. Lungs:? clear anteriorly and posteriorly. Extremities:? no edema. Psych:? alert, oriented, cognitive function intact, cooperative with exam. Neuro Other: Mental Status:?Normal attention, orientation, memory and affect.? Cranial Nerves:?Pupils are equal, round and reactive to light. External occular muscles are intact. Visual bansal are full. Face is symmetrical. Facial sensations are normal. Tongue is midline. Palate elevates symmetrically. Shoulder shrugging is normal. Hearing to bedside conversation is normal. Sensory Exam:?....? Coordination:?No ataxia,?no titubation.? Gait Exam: Within normal limits. Extrapyramidal System:?No tremor, rigidity with normal facial expressions.? Pronator Drift:?Not present.? Involuntary Movements:?No tremors seen.? Speech:?Normal.? Results Reviewed Results Reviewed: Labs at [place] 05/2025: CBC, CMP: ok Cholesterol: 235, LDL 137 A1c 5.8 Vit D 16.7 Assessment & Plan Assessment & Plan (1) Migraine without aura: Code(s): G43.009 - Migraine without aura, not intractable, without status migrainosus Category: Medical Qualifiers: Intractability: not intractable Status migrainosus presence: without status migrainosus Qualified Code(s): G43.009 - Migraine without aura, not intractable, without status migrainosus Plan: She stopped topiramate due to dizziness. She was started on venlafaxine by psychiatrist for mood symptoms, but may also help with headaches. Rizatriptan as needed was not working as well as it had before, and she was often having to repeat dose. Start nurtec 75mg 1 tablet as needed for migraine, use/side effects reviewed. She tried and failed sumatriptan, rizatriptan, and butalbital. She had allergy to aspirin and NSAIDs. Continue rizatriptan 10mg 1 tablet as needed for migraine Continue ondansetron 4mg 1 tablet as needed for nausea/vomiting (2) Fibromyalgia: Code(s): M79.7 - Fibromyalgia Category: Medical Plan Meds tried: amitriptyline (side effects), duloxetine (side effects), sumatriptan (side effects), butalbital, topiramate, rizatriptan Medications: New rimegepant (Nurtec ODT) 75 mg PO Q OTHER DAY PRN 10 tabs 5RF migraine headache 30 days Coding Level of Care Code Est Pt Level 4 (87891) Diagnoses Migraine without aura and without status migrainosus, not intractable G43.009 Intractability: not intractable Status migrainosus presence: without status migrainosus Fibromyalgia M79.7
--- OUTSIDE RECORDS SUMMARY | 2025-08-02 16:22 | XMS_ITS | Clinical Summary ---
Author Organization [facility] Address [address] [address] Phone Care Team Providers Care Medical Facilities Section Director Name Role Phone BillurielciprianoJaswinder worthington Primary Care Provider [phone] Allergies Active Allergy Reactions Criticality Noted Date [...] 2022) and current heavy menses. Will check [facility] and u/s. Tran does have hx of [...] Feeling well. Active baby. Was seen at [facility] ED in the past week for [...] since transferring care. Prior care was at [facility], wanted to see midwives and was not [...] signs, when to call, how to reach business system consultant CNM. NASIMA in two weeks. Assessment & [...] chiropractor. -Discussed FM at this [place] and [facility] -Review signs and symptoms of Pre-term Labor [...] records not received for prior done at [facility] (had care with BRUNA, [place] [facility] - records in media Desires TOLAC, consent [...] received, completed record release today for both [facility] and [facility]. Deisres TOLAC, consent signed 03/01/21. Assessment [...] home , Co-care should be done with [facility] because she lives in [place]- She does plan that. I welcomed Tran [...] C SCREENING 02/20/2008 PAP SMEAR 07/14/2023 07/14/2020 SCREENING FOR DIABETES 2025 02/26/2021 INFLUENZA VACCINE (#1) 2025 08/04/2020 COVID-19 VACCINE (2024-12 6 season) 2025 07/14/2021, 06/16/2021 Adult Td,Tdap Booster 03/01/2031 03/01/2021 , 07/16/2015 [...] this topic Medical Devices Implanted Type Area Program Professional Device Identifier Shelf Expiration Date Model / Serial / Lot Iud Implanted: (Quantity not on file) Intrauterine Device Procedures Procedure Name Priority Date/Time Associated Diagnosis Comments PAP TEST Routine 07/14/2020 from Last 3 Months or Most Recently Relevant to Health Maintenance Results * Pap Smear (07/14/2020) PAP - EXTERNAL NIL/HPV neg Historical Provider CYTOLOGY ORDERABLES Final Result from Last 3 Months or Most Recently Relevant to Health Maintenance Insurance [facility] [place] [address] [facility] Advance Directives For more information, please contact: [phone] (9AM - 5PM [facility], Friday-Friday) Documents on File Type Date Recorded Patient Zoo Veterinarian Expl anation Healthcare Proxy 05/22/2021 2:28 PM Care Teams Medical Facilities Section Director Relationship Specialty Start Date End Date Jaswinder Rondon DO [address] [place] [address] [address] [place] [address] PCP - General Internal Medicine 02/15/21 Additional Source Comments The information contained in this document represents components of the legal health record. It is not the complete legal health record.[facility]
== END 2025-08-02 15:51 | disposition home or self-care (01) ==
LOC: HO.HSM 15:01
PROVIDERS: PCP Internal Medicine; Visit Provider Registered Nurse
DX: G43.009 Migraine without aura, not intractable, without status migrainosus (principal); M79.7 Fibromyalgia
CPT/HCPCS: 99214

== ENCOUNTER 2025-09-13 11:35 | Outpatient (REF) | payer OTHER, SELFPAY ==
--- OUTSIDE RECORDS SUMMARY | 2025-09-13 13:40 | XMS_ITS | Clinical Summary ---
Author Organization [facility] Address [address] [place] [address] Phone Care Team Providers Care Interactive Web Developer Name Role Phone BillurielciprianoJaswinder worthington Primary Care Provider [phone] Allergies Active Allergy Reactions Criticality Noted Date [...] 2022) and current heavy menses. Will check [facility] [place] [place] and u/s. Tran does have hx of [...] Feeling well. Active baby. Was seen at [facility] ED in the past week for [...] since transferring care. Prior care was at [facility], wanted to see midwives and was not [...] signs, when to call, how to reach industrial education instructor CNM. NASIMA in two weeks. Assessment & [...] chiropractor. -Discussed FM at this [place] and [facility] -Review signs and symptoms of [...] records not received for prior done at [facility] (had care with BRUNA, [place] [facility] - records in media Desires TOLAC, consent [...] received, completed record release today for both [facility] and [facility]. Deisres TOLAC, consent signed 03/01/21. Assessment [...] home , Co-care should be done with [facility] because she lives in [place]- She does plan that. I welcomed Tran [...] Date Last Done Comments DEPRESSION SCREENING 2002 PAP SMEAR 07/14/2023 07/14/2020 SCREENING FOR DIABETES 2025 02/26/2021 INFLUENZA VACCINE (#1) 2025 08/04/2020 COVID-19 VACCINE (3 2024-2 6 season) 2025 07/14/2021, 06/16/2021 Adult Td,Tdap Booster 03/01/2031 03/01/2021 , 07/16/2015 HEPATITIS C SCREENING Completed 10/30/2020 HIV ONE-TIME SCREENING (18-6 5 YEARS) Completed 10/30/2020 SMOKING STATUS SCREENING (On ce After 26 Yrs) Completed 04/22/2022 HEPATITIS A VACCINES Aged Out No long er eligible based on patient's age to complete this topic HIB VACCINES Aged Out No longer eligi ble based on patient's age to complete this topic IPV VACCINES Aged Out No longer eligi ble [...] this topic Medical Devices Implanted Type Area Strategic Planning Director Device Identifier Shelf Expiration Date Model / Serial / Lot Iud Implanted: (Quantity not on file) Intrauterine Device Procedures Procedure Name Priority Date/Time Associated Diagnosis Comments HEPATITIS B SURFACE ANTIGEN Routine 10/30/2020 PAP TEST Routine 07/14/2020 from Last 3 Months or Most Recently Relevant to Health Maintenance Results * Hepatitis B surface antigen (10/30/2020) HBSAG - EXTERNAL Neg Historical Provider LAB BLOOD BKR ORDERABLES Final Result * Pap Smear (07/14/2020) PAP - EXTERNAL NIL/HPV neg Historical Provider CYTOLOGY ORDERABLES Final Result from Last 3 Months or Most Recently Relevant to Health Maintenance [place] [address] [address] [place] [address] [place] [address] [place] [address] [place] [address] DAV[address] QUINTERO [id number] [place] [address] [place] [phone] Advance Directives For more information, please contact: [phone] (9AM - 5PM [facility], Friday-Friday) Documents on File Type Date Recorded Patient Administrative Services Specialist Expl anation Healthcare Proxy 05/22/2021 2:28 PM Care Teams Interactive Web Developer Relationship Specialty Start Date End Date Jaswinder Rondon DO [address] [place] [id number] PCP - General Internal Medicine 02/15/21 Additional Source Comments The information contained in this document represents components of the legal health record. It is not the complete legal health record.[facility]
== END 2025-09-13 11:36 | disposition home or self-care (01) ==
LOC: HO.LAB 11:35
PROVIDERS: PCP Nurse Practitioner Adult Health; Visit Provider Nurse Practitioner Adult Health
DX: Z13.89 Encounter for screening for other disorder (principal)